=== PATIENT | male | born 1975 | race African-American/Black ===

== ENCOUNTER 2016-12-20 16:46 | Outpatient (CLI) ==
[2016-08-14 09:14] VITALS: BMI 29.2
[2016-12-20 17:26] LABS: BASOPHILS % (AUTO) 0.2 % (0.0-3.0); EOSINOPHILS # (AUTO) 0.2 K/ul (0.0-0.7); EOSINOPHILS % (AUTO) 3.7 % (0.0-7.0); HEMATOCRIT 42.2 % (42.0-52.0); HEMOGLOBIN 13.8 g/dl (14.0-18.0); IMMATURE GRANULOCYTE % (AUTO) 0.4 % (0.0-5.0); LYMPHOCYTES # (AUTO) 1.4 K/uL (0.60-3.4); LYMPHOCYTES % (AUTO) 27.9 (10.0-50.0); MEAN CORPUSCULAR HEMOGLOBIN 26.3 pg (27.0-31.0); MEAN CORPUSCULAR HGB CONC 32.7 (31.8-35.4); MEAN CORPUSCULAR VOLUME 80.5 fl (80.0-94.0); MONOCYTES # (AUTO) 0.5 K/uL (0.4-2.0); MONOCYTES % (AUTO) 10.3 (0-10); NEUTROPHILS % (AUTO) 57.5; PLATELET COUNT 229 10^3/uL (140-440); RED BLOOD COUNT 5.24 10^6/ul (4.70-6.10); WHITE BLOOD COUNT 5.16 K/ul (4.2-10.2)
[2016-12-20 18:00] LABS: ALBUMIN 4.2 g/dL (3.4-5.0); ALBUMIN/GLOBULIN RATIO 0.98; ANION GAP 12.7; BILIRUBIN,TOTAL 0.73 mg/dL (0.00-1.20); BUN/CREATININE RATIO 12.4; CALCIUM 10.1 mg/dL (8.2-10.2); CHOL/HDL RATIO 4.3 (4.5-6.4); CREATININE 1.37 mg/dL (0.60-1.10); POTASSIUM 3.7 mmol/L (3.5-5.1); TOTAL PROTEIN 8.5 g/dL (6.4-8.2)
== END 2016-12-20 16:47 | disposition home or self-care (01) ==
LOC: LAB 16:46
PROVIDERS: ATTEND Emergency Medicine
DX: J84.10 Pulmonary fibrosis, unspecified (principal); I10 Essential (primary) hypertension; E78.5 Hyperlipidemia, unspecified; E11.9 Type 2 diabetes mellitus without complications
CPT/HCPCS: 36415; 80053; 80061; 83036; 84443; 85025

== ENCOUNTER 2017-03-27 16:12 | Outpatient (CLI) ==
[2016-08-14 09:14] VITALS: BMI 29.2
[2017-03-27 17:12] LABS: BASOPHILS % (AUTO) 0.2 % (0.0-3.0); EOSINOPHILS # (AUTO) 0.1 K/ul (0.0-0.7); EOSINOPHILS % (AUTO) 2.4 % (0.0-7.0); HEMATOCRIT 39.9 % (42.0-52.0); HEMOGLOBIN 13.7 g/dl (14.0-18.0); IMMATURE GRANULOCYTE % (AUTO) 0.2 % (0.0-5.0); LYMPHOCYTES # (AUTO) 1.6 K/uL (0.60-3.4); LYMPHOCYTES % (AUTO) 32.2 (10.0-50.0); MEAN CORPUSCULAR HEMOGLOBIN 27.2 pg (27.0-31.0); MEAN CORPUSCULAR HGB CONC 34.3 (31.8-35.4); MEAN CORPUSCULAR VOLUME 79.3 fl (80.0-94.0); MONOCYTES # (AUTO) 0.4 K/uL (0.4-2.0); MONOCYTES % (AUTO) 7.8 (0-10); NEUTROPHILS # (AUTO) 2.8 K/ul (2.0-6.9); NEUTROPHILS % (AUTO) 57.2; PLATELET COUNT 253 10^3/uL (140-440); RED BLOOD COUNT 5.03 10^6/ul (4.70-6.10)
[2017-03-27 17:49] LABS: ALBUMIN 4.3 g/dL (3.4-5.0); ALBUMIN/GLOBULIN RATIO 0.93; ANION GAP 16.9; CALCIUM 10.5 mg/dL (8.2-10.2); CHOL/HDL RATIO 4.4 (4.5-6.4); CREATININE 1.4 mg/dL (0.60-1.10); POTASSIUM 3.9 mmol/L (3.5-5.1); TOTAL PROTEIN 8.9 g/dL (6.4-8.2)
== END 2017-03-27 16:13 | disposition home or self-care (01) ==
LOC: LAB 16:12
PROVIDERS: ATTEND Emergency Medicine
DX: E11.9 Type 2 diabetes mellitus without complications (principal); I10 Essential (primary) hypertension; E78.5 Hyperlipidemia, unspecified
CPT/HCPCS: 36415; 80053; 80061; 83036; 84443; 85025

== ENCOUNTER 2017-08-30 12:35 | Outpatient (CLI) ==
[2016-08-14 09:14] VITALS: BMI 29.2
== END 2017-08-30 12:36 | disposition home or self-care (01) ==
LOC: LAB 12:35
PROVIDERS: ATTEND Emergency Medicine
DX: E78.5 Hyperlipidemia, unspecified (principal); E11.9 Type 2 diabetes mellitus without complications; I10 Essential (primary) hypertension
CPT/HCPCS: 36415; 80053; 80061; 83036; 84443; 85025

== ENCOUNTER 2018-01-22 16:11 | Outpatient (CLI) ==
[2016-08-14 09:14] VITALS: BMI 29.2
--- NOTE | 2018-01-23 08:43 | DI ---
EXAM: Supine abdominal radiograph. HISTORY: Slow transit constipation. COMPARISON: None available. FINDINGS: Large amount of stool present throughout the colon. Air and stool present in the rectum. No dilated bowel loops are seen. No masses or abnormal calcifications identified. No acute osseous abnormality detected. IMPRESSION: Large amount of stool in the colon.
== END 2018-01-22 16:12 | disposition home or self-care (01) ==
LOC: LAB 16:11
PROVIDERS: ATTEND Emergency Medicine
DX: K59.01 Slow transit constipation (principal); E78.5 Hyperlipidemia, unspecified; I10 Essential (primary) hypertension
CPT/HCPCS: 36415; 80053; 80061; 83036; 84443; 85025

== ENCOUNTER 2018-01-24 12:56 | Outpatient (CLI) ==
[2016-08-14 09:14] VITALS: BMI 29.2
== END 2018-01-24 12:57 | disposition home or self-care (01) ==
LOC: CAR 12:56
PROVIDERS: ATTEND Emergency Medicine
DX: J84.10 Pulmonary fibrosis, unspecified (principal)
CPT/HCPCS: 94761

== ENCOUNTER 2018-05-14 14:44 | Outpatient (CLI) ==
[2016-08-14 09:14] VITALS: BMI 29.2
--- NOTE | 2018-05-14 15:39 | DI ---
EXAM: Two views of the chest. History: Chest pain, lower back pain. Comparison: Chest radiograph 06/29/2016, chest CT 10/18/2015 Findings: Heart size is upper limits of normal. Pulmonary fibrosis with honeycombing again identifi ed and has worsened. No definite acute infiltrates. No appreciable pleural fluid and no pneumothora x. No acute osseous abnormalities. Impression: Worsening pulmonary fibrosis
--- NOTE | 2018-05-14 15:41 | DI ---
EXAM: Five views of the lumbar spine. History: Lower back pain. Comparison: Lumbar spine MRI 10/15/2015 Findings: No acute fracture or subluxation of the lumbar spine. Mild disc space narrowing at L4-L5 and L5-S1 with endplate sclerosis and no significant osteophyte formation. Mild facet hypertrophy wi thin the lower lumbar spine. Impression: 1. No acute osseous abnormality of the lumbar spine. 2. Mild degenerative changes at L4-L5 and L5-S1.
== END 2018-05-14 14:45 | disposition home or self-care (01) ==
LOC: RAD 14:44
PROVIDERS: ATTEND Family Medicine
DX: R05 Cough (principal); R09.89 Other specified symptoms and signs involving the circulatory and respiratory systems; J84.10 Pulmonary fibrosis, unspecified; N17.9 Acute kidney failure, unspecified; M54.5 Low back pain
CPT/HCPCS: 36415; 80053; 80306; 85025